=== PATIENT | male | born 1965 | race American Indian/Alaskan Native ===

== ENCOUNTER 2019-08-08 11:23 | Emergency (ER) | payer SELFPAY ==
--- NOTE | 2019-08-08 11:54 | Event Note ---
ED Screening Note ED Screening Note: This initial assessment/diagnostic orders/clinical plan/treatment(s) is/are subject to change based on patients health status, clinical progression and re- assessment by fellow clinical providers in the ED. Further treatment and workup at subsequent clinical providers discretion. Patient/guardian urged not to elope from the ED as their condition may be serious if not clinically assessed and managed. Initial orders include: 54yo BM states that he has a history of kidney stones and today he has R side lower back pain that is similar to an episode from his past.
--- NOTE | 2019-08-08 12:35 | XRay Report ---
ABDOMEN 1 VIEW(S) INDICATION / CLINICAL INFORMATION: back pain. COMPARISON: None available. FINDINGS: TUBES / LINES: None. BOWEL GAS PATTERN/EXTRALUMINAL GAS: No significant abnormality. No pneumatosis or secondary signs of free air. ADDITIONAL FINDINGS: No appreciable urinary stones. IMPRESSION: 1. No significant abnormality. Signer Name: Larry Martinez MD Signed: 08/08/2019 12:31 PM Workstation Name: [id number]
[2019-08-08] MEDS ORDERED: KETOROLAC 60 MG/2 ML INJ IM ONE (13:02)
[2019-08-08 13:08] LABS: Bilirubin,Urine NEG (Negative); Blood,Urine LG (Negative); Color,Urine Yellow (Yellow); Mucus,Urine FEW /HPF; Protein,Urine <15 mg/dL mg/dL (Negative); Urobilinogen,Urine < 2.0 mg/dL (<2.0)
--- NOTE | 2019-08-08 13:09 | Emergency Department Report ---
ED Male HPI - General Chief complaint: Abdominal Pain Stated complaint: R SIDE/BACK PAIN Time Seen by Provider: 08/08/19 12:50 Source: patient Mode of arrival: Ambulatory Limitations: No Limitations - History of Present Illness Initial comments: 54 yo male c/o right flank pain, dark urine and bladder pressure. Symptoms started this morning. Prior hx of kidney stones.Last episode was 8 months ago. Denies abdominal pain, chest tovar,sob, no fever or chills. Location: right flank Radiation: none Severity scale (0 -10): 6 Quality: sharp Consistency: constant Improves with: none Worsens with: none dysuria. denies: discharge, swelling, urinary retention, blood in urine, fever, nausea/vomiting, incontinence - Related Data Previous Rx's Medication Instructions Recorded Last Taken Type traMADoL [Ultram 50 MG tab] 50 mg PO Q6HR PRN #15 tablet 08/08/19 Unknown Rx Allergies Allergy/AdvReac Type Severity Reaction Status Date / Time iodine Allergy Hives Verified 08/08/19 11:28 ED Review of Systems ROS: Stated complaint: R SIDE/BACK PAIN Other details as noted in HPI Comment: All other systems reviewed and negative Genitourinary: dysuria, other (right flank pain ). denies: testicular pain, devora ticular mass ED Past Medical Hx - Past Medical History Previous Medical History?: Yes Hx Hypertension: Yes Hx Diabetes: Yes - Social History Smoking Status: Never Smoker Substance Use Type: Marijuana - Medications Home Medications: Home Medications Medication Instructions Recorded Confirmed Last Taken Type traMADoL [Ultram 50 MG tab] 50 mg PO Q6HR PRN #15 tablet 08/08/19 Unknown Rx ED Physical Exam - General Limitations: No Limitations General appearance: alert - Head Head exam: Present: atraumatic - Eye Eye exam: Present: normal appearance - ENT ENT exam: Present: normal exam - Respiratory Respiratory exam: Present: normal lung sounds bilaterally, respiratory distress - Cardiovascular Cardiovascular Exam: Present: regular rate, normal heart sounds - GI/Abdominal GI/Abdominal exam: Present: soft. Absent: distended, tenderness, guarding, organomegaly - Rectal Rectal exam: Present: deferred - Extremities Exam Extremities exam: Present: normal inspection - Back Exam Back exam: Present: normal inspection. Absent: CVA tenderness (R), CVA tenderness (L) - Neurological Exam Neurological exam: Present: alert, oriented X3 - Psychiatric Psychiatric exam: Present: normal affect - Skin Skin exam: Present: warm ED Course Vital Signs 08/08/19 08/08/19 08/08/19 11:51 13:08 14:41 Temperature 98.2 F 98.9 F Pulse Rate 69 88 Respiratory 18 20 18 Rate Blood Pressure 177/94 123/78 O2 Sat by Pulse 100 100 Oximetry - Reevaluation(s) Reevaluation #1: 08/08/19 14:42 Pain relieved with Toradol IM ED Medical Decision Making - Lab Data Result diagrams: 08/08/19 13:09 08/08/19 13:09 - Radiology Data Radiology results: report reviewed CT abd. Pelvis IMPRESSION: 1. A 2 mm stone at the right ureterovesical junction results in minimal upstream hydroureteronephrosis as well as perinephric and periureteric stranding. 2. Additional bilateral nonobstructive intrarenal stones. - Medical Decision Making Right flank pain Urine no infection Ct abd./pelvis wo/con IMPRESSION: 1. A 2 mm stone at the right ureterovesical junction results in minimal upstream hydroureteronephrosis as well as perinephric and periureteric stranding. 2. Additional bilateral nonobstructive intrarenal stones. Pain relieved with ToradoL Follow up with PCP in 2-3 days or return for worsening symptoms such as fever, increasing, unable to urinate, nausea vomiting Critical Care Time: No Critical care attestation.: If time is entered above; I have spent that time in minutes in the direct care of this critically ill patient, excluding procedure time. ED Disposition Clinical Impression: Kidney stone on right side Disposition: DC-01 TO HOME OR SELFCARE Is pt being admited?: No Does the pt Need Aspirin: No Condition: Stable Instructions: Kidney Stones (ED) Additional Instructions: Drink plenty fluids, follow up with your Doctor in 2-3 days. You have a 2mm right kidney stone that your should be able to pass without difficulty. If you develop fever unable to pee nausea vomiting or increasing pain return to ER. Prescriptions: traMADoL [Ultram 50 MG tab] 50 mg PO Q6HR PRN #15 tablet PRN Reason: Pain Referrals: PRIMARY CARE, [Primary Care Provider] - 3-5 Days Time of Disposition: 14:56
[2019-08-08 13:38] LABS: Hemoglobin 12.6 gm/dl (11.8-15.2); Mean Corpuscular HGB Conc 32 % (32-34); Mean Corpuscular Volume 73 fl (84-94); Platelet Count 302 K/mm3 (140-440); Red Cell Distribution Width 15.5 % (13.2-15.2)
[2019-08-08 14:20] LABS: BUN/Creatinine Ratio 18; Blood Urea Nitrogen 20 mg/dL (9-20); Calcium 9.6 mg/dL (8.4-10.2); Hemolysis Index 32
--- NOTE | 2019-08-08 14:33 | Cat Scan Report ---
CT ABDOMEN AND PELVIS WITHOUT CONTRAST INDICATION / CLINICAL INFORMATION: left flank pain. TECHNIQUE: Axial CT images were obtained through the abdomen and pelvis without IV contrast. All CT scans at [facility] location are performed using CT dose reduction for ALARA by means of automated exposure control. COMPARISON: None available. FINDINGS: LOWER CHEST: No significant abnormality. LIVER: No significant abnormality. GALLBLADDER: No significant abnormality. BILE DUCTS: No significant abnormality. PANCREAS: No significant abnormality. SPLEEN: No significant abnormality. ADRENALS: No significant abnormality. RIGHT KIDNEY and URETER: There is a 2 mm stone at the right ureterovesical junction with upstream min imal right hydroureteronephrosis as well as perinephric and periureteric stranding. Several additiona l punctate nonobstructive intrarenal stones. LEFT KIDNEY and URETER: Multiple nonobstructive intrarenal stones, the largest measuring up to approx imately 5 mm. No hydronephrosis. STOMACH and SMALL BOWEL: No significant abnormality. COLON: No significant abnormality. APPENDIX: No significant abnormality. PERITONEUM: No free fluid. No free air. No fluid collection. LYMPH NODES: No significant adenopathy. AORTA and ARTERIES: No significant abnormality. IVC and VEINS: No significant abnormality. URINARY BLADDER: No significant abnormality. REPRODUCTIVE ORGANS: No significant abnormality. ADDITIONAL FINDINGS: None. SKELETAL SYSTEM: No significant abnormality. IMPRESSION: 1. A 2 mm stone at the right ureterovesical junction results in minimal upstream hydroureteronephrosi s as well as perinephric and periureteric stranding. 2. Additional bilateral nonobstructive intrarenal stones. Signer Name: Elda Birch MD Signed: 08/08/2019 2:29 PM Workstation Name: [id number]
[2019-08-08 14:43] VITALS: BP 123/78
[2019-08-08 15:20] LABS: Basophils % (Manual) 0 % (0.0-1.8); Eosinophils % (Manual) 0 % (0.0-4.3); Hypochromasia 1+; Total Cells Counted 100
== END 2019-08-08 14:46 | disposition home or self-care (01) ==
LOC: ED 11:23
DX: N20.0 Calculus of kidney (principal); I10 Essential (primary) hypertension; E11.9 Type 2 diabetes mellitus without complications; F12.10 Cannabis abuse, uncomplicated
CPT/HCPCS: 36415; 74018; 74176; 80048; 81001; 85007; 85025; 96372; 99284; J1885